=== PATIENT | male | born 1945 | race Caucasian/White ===

== ENCOUNTER → 2017-04-12 | Day surgery (SDC) | payer MEDICARE, BC ==
[~2017-04-12] MED LIST: Lactated Ringers 1,000 ML IV SCH; Propofol 200 MG/20 ML SDV IV ONE
[2017-04-12 10:21] VITALS: BP 161/95
--- NOTE | 2017-04-15 07:21 | OR ---
DATE OF OPERATION: 04/12/2017 PREOPERATIVE DIAGNOSIS: FOLLOWUP POLYPS. POSTOPERATIVE DIAGNOSIS: FOLLOWUP POLYPS. SURGEON: Wilfred Osuna MD PROCEDURE: FULL-LENGTH COLONOSCOPY WITH POLYP REMOVAL X1. ANESTHESIA: [employer] due to morbid obesity and coronary artery disease. COMPLICATIONS: None. SPECIMEN: Small tubular adenoma, splenic flexure. FINDINGS: 1. Colonoscopy to hepatic flexure. 2. Extremely poor prep. 3. Flat tubular adenoma, splenic flexure. 4. Mild to moderate sigmoid diverticulosis. RECOMMENDATIONS: Follow up colonoscopy in 5 years. If primary physician desires, could consider barium enema for full evaluation of the right colon as the patient has tortuous and long colon associated with a large ventral hernia. Unable to reach the cecum due to the patient's colon length. INDICATIONS: The patient was in for a physical. He is due for a 5-year followup colonoscopy. Dr. Louise recommended procedure. DESCRIPTION OF PROCEDURE: The patient was prepped and draped, placed in the left lateral decubitus position. A lubricated Olympus colonoscope was inserted and easily advanced to the transverse colon where actually multiple times I went [id number] to try the telescope through. He has an extremely long and tortuous transverse colon and a large ventral hernia incorporating this. We were unable to get past the hepatic flexure because we ran out of scope. Multiple attempts were made to pass. We were able to get once just past the hepatic flexure and look down the ascending colon, but I could not advance the scope to see into the cecum as there was not enough length there. The bowel prep was very marginal. There was a lot of liquid stool with particulate matter. Multiple times the scope got plugged and we had to pump self- irrigation. There were certain areas that could not be suctioned at all upon withdrawal, but we could see the distal, ascending colon appeared benign. For the most part, the transverse colon was unremarkable. Although visualization was poor here. Right at the splenic flexure, the patient had a small flat tubular adenoma removed in its entirety with 3 cold forceps biopsies. The rest of the descending colon was benign. Sigmoid colon also had a lot of stool present. We were able to see some scattered diverticula mild to moderate in severity without any acute inflammatory changes. I could find no obvious polyps, mass, ulceration or bleeding sites. No signs of vascular abnormality or colitis. The rectal vault was unremarkable. Large volume of stool present here, almost it was liquid, able to suction most of this. Retroflexion showed no perianal lesions. Air was then suctioned. Scope was removed without complication. EMI/JENNA /[id number]
== END ==
LOC: CC.SDS 08:11
PROVIDERS: ATTEND Family Medicine
DX: Z12.11 Encounter for screening for malignant neoplasm of colon (principal); D12.3 Benign neoplasm of transverse colon; K57.30 Diverticulosis of large intestine without perforation or abscess without bleeding; I25.10 Atherosclerotic heart disease of native coronary artery without angina pectoris; E66.01 Morbid (severe) obesity due to excess calories; I10 Essential (primary) hypertension; M10.9 Gout, unspecified; G47.30 Sleep apnea, unspecified; M19.90 Unspecified osteoarthritis, unspecified site; N40.0 Benign prostatic hyperplasia without lower urinary tract symptoms; Z79.82 Long term (current) use of aspirin; Z79.899 Other long term (current) drug therapy; Z90.49 Acquired absence of other specified parts of digestive tract; Z87.891 Personal history of nicotine dependence; Z98.890 Other specified postprocedural states
CPT/HCPCS: 00810; 45380; J2704; J7120; 88305

== ENCOUNTER 2020-08-04 23:01 | Emergency (ER) | payer MEDICARE, BC ==
[2020-08-04 23:44] VITALS: BP 142/87; PULSE 100
--- NOTE | 2020-08-04 23:47 | EDM.PDOC ---
ED HPI GENERAL MEDICAL PROBLEM - General Chief Complaint: ENT Problem Stated Complaint: I have a nose bleed Time Seen by Provider: 08/04/20 23:28 Source of Information: Reports: Patient History Limitations: Reports: No Limitations - History of Present Illness INITIAL COMMENTS - FREE TEXT/NARRATIVE: Chavo is a 74 yo male who presents to the ED via private vehicle with complaints of a nosebleed. States it has been bleeding since this evening and has been trying to get it to stop since. States he has a history of nosebleeds back 67 yrs and has been seen for it on multiple occasions and doctors. States he has had cauterizing done via silver nitrate sticks and electrocautery as well. States he typically has been able to get it to stop on his own. Admits he does have a history of vomiting, which is chronic for him. States tonight he threw up and the bleeding started. Has history of hypertension but admits it is very well controlled. Duration: Getting Worse - Related Data Allergies Allergy/AdvReac Type Severity Reaction Status Date / Time No Known Allergies Allergy Verified 08/04/20 23:05 Home Meds: Home Meds Atenolol/Chlorthalidone [Tenoretic 50] 50 mg PO DAILY 04/08/16 [History] Allopurinol [Zyloprim] 300 mg PO DAILY 04/11/17 [History] Ascorbic Acid [Vitamin C] 1,000 mg PO DAILY 04/11/17 [History] Aspirin [Halfprin] 81 mg PO DAILY 04/11/17 [History] Calcium/Magnesium/Zinc [Calcium & Magnesium plus Zinc] 1 tab PO DAILY 04/11/17 [History] Cholecalciferol (Vitamin D3) [Vitamin D3] 2 cap PO DAILY 04/11/17 [History] Cyanocobalamin (Vitamin B-12) [Cyanocobalamin Injection] 2,000 mcg INJECT ASDIRECTED 04/11/17 [History] Folic Acid 400 mcg PO DAILY 04/11/17 [History] Lactulose [Chronulac] 10 gm PO ASDIRECTED PRN 04/11/17 [History] Lisinopril 20 mg PO DAILY 04/11/17 [History] Meloxicam 15 mg PO DAILY 04/11/17 [History] Multivitamin [Daily Liz] 1 each PO DAILY 04/11/17 [History] Past Medical History - Past Health History Medical/Surgical History: Denies Medical/Surgical History Cardiovascular History: Reports: Hypertension Musculoskeletal History: Reports: Gout - Past Surgical History HEENT Surgical History: Reports: Naso-Sinus Surgery Cardiovascular Surgical History: Reports: None Respiratory Surgical History: Reports: None GI Surgical History: Reports: Hernia Repair/Other, Other (See Below) (Colectomy, gastric bypass) Male Surgical History: Reports: TURP-Transurethral Resection of Prostate, Other (See Below) Neurological Surgical History: Reports: Discectomy, Lumbar Spine Musculoskeletal Surgical History: Reports: Arthroscopic Procedure (shoulder), Knee Replacement, Other (See Below) (elbow surgery) Social & Family History - Tobacco Use Tobacco Use Status *Q: Former Tobacco User (Quit 30-40 yrs ago) - Alcohol Use Alcohol Use History: No - Living Situation & Occupation Living situation: Reports: , with Spouse Occupation: Retired ED ROS ENT - Review of Systems Review Of Systems: See Below Constitutional: Reports: No Symptoms HEENT: Reports: Hearing Loss, Nosebleed Respiratory: Reports: No Symptoms Cardiovascular: Reports: No Symptoms GI/Abdominal: Reports: No Symptoms : Reports: No Symptoms Musculoskeletal: Reports: No Symptoms Skin: Reports: No Symptoms Neurological: Reports: No Symptoms Psychiatric: Reports: No Symptoms ED EXAM, ENT - Physical Exam Exam: See Below Exam Limited By: No Limitations General Appearance: Alert, No Apparent Distress Eye Exam: Bilateral Eye: Normal Inspection Ears: Normal External Exam, Normal Canal, Normal TMs. No: Canal Blood, TM Bulging, TM Blood Nose: Active Bleeding. No: Septal Hematoma Mouth/Throat: Other (blood drainage in posterior pharynx) ED ENT PROCEDURES - Epistaxis Procedure Indication: Epistaxis Uncontrolled HTN: No Recent septal/nasal surgery: No Site of bleeding: Left Nare Clearing of clots: Patient Blew Nose Ice pack to area: Yes Anterior Packing: Inflatable Nasal Tampon Posterior packing: Long Inflatable Nasal Tampon Complications: No Departure - Departure Time of Disposition: 00:09 Disposition: Home, Self-Care 01 Clinical Impression: Epistaxis - Discharge Information Instructions: Nosebleed, Adult Additional Instructions: 1) Follow up with primary provider tomorrow for possible removal of nasal tampon. 2) Recommend sleeping in a recliner tonight 3) Handout on nosebleeds given 4) If any further concerns, bleeding starts again recommend returning for reevaluation. - Problem List & Annotations (1) Epistaxis SNOMED Code(s): 732155099 Code(s): R04.0 - EPISTAXIS Status: Acute - Problem List Review Problem List Initiated/Reviewed/Updated: Yes - Assessment/Plan Plan: Chavo had active bleeding on arrival with significant clot buildup. Significant amount of clot removed via blowing of the nose. Active bleeding noted after removal of clot. Unable to find exact source and were concerned with posteror bleed. Anterior/posterior inflatable nasal tampon inserted and 20cc of air filled syringe. Patient had discomfort at 20cc air and stopped inflating at that time. Patient did have continued discomfort and took 3cc's out which signicantly improved symptoms. Monitored patient and nose bleed did subside. Will have him follow up with primary provider tomorrow for possible removal. Advised being set up with ENT for reevaluation d/t increase in recent nose bleeds.
== END 2020-08-05 00:15 | disposition home or self-care (01) ==
LOC: CC.ED 23:01
DX: R04.0 Epistaxis (principal); I10 Essential (primary) hypertension; M10.9 Gout, unspecified; Z87.891 Personal history of nicotine dependence; Z79.82 Long term (current) use of aspirin; Z79.899 Other long term (current) drug therapy
CPT/HCPCS: 30901; 30903; 99283; 99283-25

== ENCOUNTER 2021-01-20 16:47 | Emergency (ER) | payer MEDICARE, BC ==
[2021-01-20 16:59] VITALS: BP 168/90; PULSE 73
--- NOTE | 2021-01-20 17:30 | EDM.PDOC ---
ED HPI GENERAL MEDICAL PROBLEM - General Chief Complaint: General Stated Complaint: LT EYE FEELS LIKE THERE IS SOMETHIN IN IT Time Seen by Provider: 01/20/21 17:15 Source of Information: Reports: Patient History Limitations: Reports: No Limitations - History of Present Illness INITIAL COMMENTS - FREE TEXT/NARRATIVE: Patient presents to ER with complaints of left eye irritation. Feels like "something in my eye". Did try to rinse but feels a discomfort to the left medial area. No vision changes. Does have a history of dry eyes, has tried his moistening drops without relief. "feels different than my usual irritation and itching". Right eye is good. Onset: Gradual Duration: Day(s):, Getting Worse Location: Reports: Face Quality: Reports: Ache Severity: Mild Associated Symptoms: Reports: No Other Symptoms Left Eye Pain Score (Numeric/FACES): 6 - Related Data Allergies Allergy/AdvReac Type Severity Reaction Status Date / Time No Known Allergies Allergy Verified 01/20/21 16:53 Home Meds: Home Meds Atenolol/Chlorthalidone [Tenoretic 50] 50 mg PO DAILY 04/08/16 [History] Allopurinol [Zyloprim] 300 mg PO DAILY 04/11/17 [History] Ascorbic Acid [Vitamin C] 1,000 mg PO DAILY 04/11/17 [History] Aspirin [Halfprin] 81 mg PO DAILY 04/11/17 [History] Calcium/Magnesium/Zinc [Calcium & Magnesium plus Zinc] 1 tab PO DAILY 04/11/17 [History] Cholecalciferol (Vitamin D3) [Vitamin D3] 2 cap PO DAILY 04/11/17 [History] Folic Acid 400 mcg PO DAILY 04/11/17 [History] Lisinopril 20 mg PO DAILY 04/11/17 [History] Meloxicam 15 mg PO DAILY 04/11/17 [History] Multivitamin [Daily Liz] 1 each PO DAILY 04/11/17 [History] Past Medical History - Past Health History Medical/Surgical History: Denies Medical/Surgical History Cardiovascular History: Reports: Hypertension Musculoskeletal History: Reports: Gout - Past Surgical History HEENT Surgical History: Reports: Naso-Sinus Surgery Other HEENT Surgeries/Procedures: Left nasal epistaxis Cardiovascular Surgical History: Reports: None Respiratory Surgical History: Reports: None GI Surgical History: Reports: Hernia Repair/Other, Other (See Below) Male Surgical History: Reports: TURP-Transurethral Resection of Prostate, Other (See Below) Neurological Surgical History: Reports: Discectomy, Lumbar Spine Musculoskeletal Surgical History: Reports: Arthroscopic Procedure, Knee Replacement, Other (See Below) Social & Family History - Tobacco Use Tobacco Use Status *Q: Former Tobacco User Used Tobacco, but Quit: Yes Month/Year Tobacco Last Used: 40 years ago - Caffeine Use Caffeine Use: Reports: Coffee - Recreational Drug Use Recreational Drug Use: No - Living Situation & Occupation Living situation: Reports: , with Spouse Occupation: Retired ED ROS GENERAL - Review of Systems Review Of Systems: Comprehensive ROS is negative, except as noted in HPI. ED EXAM, GENERAL - Physical Exam Exam: See Below Exam Limited By: No Limitations General Appearance: Alert, WD/WN, No Apparent Distress Eye Exam: Left Eye: Corneal Abrasion (has c-shaped corneal abrasion to left medial iris region), Other (no noted foreign body, eye flushed with saline), Bilateral Eye: EOMI, PERRL Course - Vital Signs Last Recorded V/S: Last Vital Signs Temp 96.4 F L 01/20/21 16:56 Pulse 73 01/20/21 16:56 Resp 20 01/20/21 16:56 BP 168/90 H 01/20/21 16:56 Pulse Ox 94 L 01/20/21 16:56 - Orders/Labs/Meds Orders: Active Orders 24 hr Category Date Time Status Fluorescein [Ful-Quynh] Med 01/20/21 17:36 Once 1 mg EYELF ONETIME ONE Gentamicin [Garamycin 0.3% Ophth Soln] Med 01/20/21 17:37 Ordered See Dose Instructions EYELF TID Tetracaine HCl/PF [Tetracaine 0.5% Steri-Unit Ade] Med 01/20/21 17:36 Once See Dose Instructions EYELF ASDIRECTED ONE Water, Distilled [Eye Wash Irrigation Soln] Med 01/20/21 17:36 Once See Dose Instructions EYELF ONETIME ONE Departure - Departure Time of Disposition: 17:28 Disposition: Home, Self-Care 01 Condition: Good Clinical Impression: Corneal abrasion, left - Discharge Information *PRESCRIPTION DRUG MONITORING PROGRAM REVIEWED*: No *COPY OF PRESCRIPTION DRUG MONITORING REPORT IN PATIENT RIVERA: No Instructions: Corneal Abrasion Forms: ED Department Discharge Additional Instructions: 1. Protective eyewear 2. Gentamicin drops in left eye- 2 drops four times a day 3. If persisting discomfort, follow up with your eye doctor. Sepsis Event Note (ED) - Evaluation Sepsis Screening Result: No Definite Risk - Focused Exam Vital Signs: Vital Signs Temp Pulse Resp BP Pulse Ox 01/20/21 16:56 96.4 F L 73 20 168/90 H 94 L - My Orders Last 24 Hours: My Active Orders 01/20/21 17:36 Fluorescein [Ful-Quynh] 1 mg EYELF ONETIME ONE Tetracaine HCl/PF [Tetracaine 0.5% Steri-Unit Ade] See Dose Instructions EYELF ASDIRECTED ONE Water, Distilled [Eye Wash Irrigation Soln] See Dose Instructions EYELF ONETIME ONE 01/20/21 17:37 Gentamicin [Garamycin 0.3% Ophth Soln] See Dose Instructions EYELF TID - Assessment/Plan Last 24 Hours: My Active Orders 01/20/21 17:36 Fluorescein [Ful-Quynh] 1 mg EYELF ONETIME ONE Tetracaine HCl/PF [Tetracaine 0.5% Steri-Unit Ade] See Dose Instructions EYELF ASDIRECTED ONE Water, Distilled [Eye Wash Irrigation Soln] See Dose Instructions EYELF ONETIME ONE 01/20/21 17:37 Gentamicin [Garamycin 0.3% Ophth Soln] See Dose Instructions EYELF TID
[2021-01-20] MEDS ORDERED: Tetracaine HCl/PF 0.5% 4 ML Bottle EYELF ONE (17:36)
[2021-01-20] MEDS ORDERED: Fluorescein 1 MG Ophth Strip EYELF ONE (17:36)
[2021-01-20] MEDS ORDERED: Distilled Water Ophth Irrig Soln 120 ML Bottle EYELF ONE (17:36)
[2021-01-20] MEDS ORDERED: Gentamicin 0.3% Ophth Soln 5 ML Bottle EYELF SCH (17:37)
== END 2021-01-20 17:36 | disposition home or self-care (01) ==
LOC: CC.ED 16:47
DX: S05.02XA Injury of conjunctiva and corneal abrasion without foreign body, left eye, initial encounter (principal); X58.XXXA Exposure to other specified factors, initial encounter
CPT/HCPCS: 99283

== ENCOUNTER 2025-02-25 01:24 | Emergency (ER) | payer MEDICARE, BC ==
[2025-02-25] MEDS: Lidocaine 1% with EPINEPHrine 1:100,000 10 ML MDV INJECT ONE (02:00)
[2025-02-25] MEDS: Diphtheria,Pertussis(Acell),Tetanus Vaccine 0.5 ML Syringe IM ONE (02:00)
[2025-02-25] MEDS: Bacitracin Oint 1 GM U/D Packet TOP ONE (02:04)
[2025-02-25 03:05] VITALS: PULSE 95
== END 2025-02-25 02:25 | disposition home or self-care (01) ==
LOC: CC.ED 01:24
DX: S51.011A Laceration without foreign body of right elbow, initial encounter (principal); I10 Essential (primary) hypertension; Z79.899 Other long term (current) drug therapy; Z23 Encounter for immunization; Z79.82 Long term (current) use of aspirin; W22.8XXA Striking against or struck by other objects, initial encounter; Y93.89 Activity, other specified
CPT/HCPCS: 12002; 90471; 90715; 99282-25